=== PATIENT | female | born 1990 | race Caucasian/White ===

== ENCOUNTER 2017-08-13 17:46 | Observation (INO) | payer MEDICAID ==
[~2017-08-13] VITALS: Ht 149.9 cm; Wt 75.7 kg
[2017-08-13] MEDS ORDERED: PREN1TAB78 PO (18:36)
== END 2017-08-13 19:00 | disposition home or self-care (01) ==
LOC: L&D 17:46
PROVIDERS: ADMIT Obstetrics & Gynecology; ATTEND Obstetrics & Gynecology
DX: O36.8130 Decreased fetal movements, third trimester, not applicable or unspecified (principal); Z3A.39 39 weeks gestation of pregnancy
CPT/HCPCS: 59025; 76815; 76818; G0378